=== PATIENT | male | born 1990 | race Caucasian/White ===

== ENCOUNTER → 2020-01-15 10:56 | Outpatient (BNVA) | payer SELFPAY | PROVIDERS: Visit Provider Nurse Practitioner Family | DX: F41.9 Anxiety disorder, unspecified (principal); F32.9 Major depressive disorder, single episode, unspecified; E55.9 Vitamin D deficiency, unspecified; F10.10 Alcohol abuse, uncomplicated; Z13.6 Encounter for screening for cardiovascular disorders | CPT/HCPCS: 80053; 80061; 81001; 82306; 83036; 84443; 85025 ==